=== PATIENT | male | born 1955 | race Caucasian/White ===

== ENCOUNTER 2016-06-12 20:24 | Inpatient (IN) | payer SELFPAY ==
[~2016-06-12] VITALS: Ht 175.3 cm; Wt 67.0 kg
[~2016-06-12 20:24] MED LIST: ASPI325T PO; LISI-515 PO
[2016-06-12 20:26] VITALS: BP 154/83; PULSE 87; RESP 15; TEMP 98.8; O2SAT 98
[2016-06-12] MEDS ORDERED: ASPI1TAB69 PO (20:36)
[2016-06-12 20:50] VITALS: RESP 14; O2SAT 96
[2016-06-12] MEDS ORDERED: SODIUM CHLOR 0.9% 1000 ML INJ 1,000 ML IV SCH (20:51)
--- NOTE | 2016-06-12 21:02 | PD ---
HPI Chief Complaint: GI Complaint Time Seen by Provider: 20:58 Travel History International Travel<30 days: No Contact w/Intl Traveler<30days: No Traveled to known affect area: No History of Present Illness HPI 60-year-old male that presents to the ED for evaluation of rectal bleeding. Per patient she's had 5 episodes of rectal bleeding today. Per patient she's had chronic lower abdominal pain for "a while ". When asked the patient states that possibly for months now. Per patient she's had no issues with bowel movements until today when he had 5 bowel movements of blood. Per patient he was significant. Patient states that the only blood thinner he takes is aspirin. She states that he did had colonoscopy possibly 4 years ago and he was negative. He does tell me that he is a heavy smoker. Per patient he has abdominal cramping when he has to have a bowel movement. Per patient the pain in his abdomen comes and goes. He also tells me that he has problems with his urine going but once he gets going is fine. Per patient he has not urinary symptoms or tenderness. He states that this been going on for almost a year and a half. Denies any allergies to medication. States that the pain in the abdomen is crampy in nature and is 4 out of 10. Patient more concerned about the bleeding. Nobody is sick in the house. No fevers chills or sweats. PFSH Past Medical History Hx Anticoagulant Therapy: Yes (asa 325mg) Blood Disorders: No Heart Rhythm Problems: No Cancer: No Cardiovascular Problems: Yes (htn takes no meds states no PCP) High Cholesterol: Yes Chest Pain: No Congestive Heart Failure: No Cerebrovascular Accident: Yes (tia's) Endocrine: No Genitourinary: No Hypertension: Yes Immune Disorder: No Musculoskeletal: Yes (DISLOCATED LEFT ELBOW 40 YEARS AGO) Neurologic: No Psychiatric: No Reproductive: No Respiratory: Yes (copd) Past Surgical History Surgical History: No Previous Surgery Other Surgery: No Social History Alcohol Use: Yes (6-12 BEERS DAILY) Tobacco Use: Yes (2 PPD X 41 YRS) Substance Use: Yes (MARIJUANA ONCE EVERY SO OFTEN) Allergies-Medications (Allergen,Severity, Reaction): Coded Allergies: No Known Allergies (Verified , 06/12/16) Reported Meds & Prescriptions Reported Meds & Active Scripts Active Lisinopril 20 Mg Tab 20 Mg PO DAILY 14 Days Reported Aspirin 81 Mg Tabdr 81 Mg PO DAILY Review of Systems Except as stated in HPI: all other systems reviewed are Neg Physical Exam Narrative GENERAL: SKIN: Warm and dry. HEAD: Atraumatic. Normocephalic. EYES: Pupils equal and round. No scleral icterus. No injection or drainage. ENT: No nasal bleeding or discharge. Mucous membranes pink and moist. Tongue is midline. No uvula deviation. NECK: Trachea midline. No JVD. CARDIOVASCULAR: Regular rate and rhythm. No murmurs, S3, S4. RESPIRATORY: No accessory muscle use. Clear to auscultation. Breath sounds equal bilaterally. GASTROINTESTINAL: Abdomen soft, non-tender, nondistended. Hepatic and splenic margins not palpable. Rectal exam: No sign of hemorrhoid or mass noted. Patient does have lawrence blood noted in my finger. Hemoccult was done and positive. MUSCULOSKELETAL: Extremities without clubbing, cyanosis, or edema. No obvious deformities. Full range of motion of the upper and lower extremities bilaterally. 2+ pulses bilaterally. NEUROLOGICAL: Awake and alert. No obvious cranial nerve deficits. Motor grossly within normal limits. Five out of 5 muscle strength in the arms and legs. Normal speech. PSYCHIATRIC: Appropriate mood and affect; insight and judgment normal. Data Data Last Documented VS Vital Signs Date Time Temp Pulse Resp B/P Pulse Ox O2 Delivery O2 Flow Rate FiO2 06/12/16 20:50 14 96 Room Air 06/12/16 20:26 98.8 87 154/83 Orders Electrocardiogram (06/12/16 20:41) Complete Blood Count With Diff (06/12/16 20:41) Comprehensive Metabolic Panel (06/12/16 20:41) Prothrombin Time / Inr (Pt) (06/12/16 20:41) Act Partial Throm Time (Ptt) (06/12/16 20:41) Lipase (06/12/16 20:41) Urinalysis - C+S If Indicated (06/12/16 20:41) Ct Abd/Pel W Iv Contrast(Rout) (06/12/16 20:41) Iv Access Insert/Monitor (06/12/16 20:41) Ecg Monitoring (06/12/16 20:41) Oximetry (06/12/16 20:41) Type And Screen (06/12/16 20:41) Sodium Chlor 0.9% 1000 Ml Inj (Ns 1000 M (06/12/16 20:51) C Diff Toxin Pcr (06/12/16 21:29) Iohexol 350 Inj (Omnipaque 350 Inj) (06/12/16 21:57) Ciprofloxacin 400 Mg Premix (Cipro 400 M (06/12/16 22:15) Metronidazole 500 Mg Inj (Flagyl 500 Mg (06/12/16 22:15) Admit Order (Ed Use Only) (06/12/16 22:18) Labs Laboratory Tests Test 06/12/16 20:47 White Blood Count 11.4 TH/MM3 Red Blood Count 4.31 MIL/MM3 Hemoglobin 13.5 GM/DL Hematocrit 38.9 % Mean Corpuscular Volume 90.3 FL Mean Corpuscular Hemoglobin 31.3 PG Mean Corpuscular Hemoglobin 34.7 % Concent Red Cell Distribution Width 12.6 % Platelet Count 220 TH/MM3 Mean Platelet Volume 10.6 FL Neutrophils (%) (Auto) 68.7 % Lymphocytes (%) (Auto) 19.1 % Monocytes (%) (Auto) 8.3 % Eosinophils (%) (Auto) 2.7 % Basophils (%) (Auto) 1.2 % Neutrophils # (Auto) 7.9 TH/MM3 Lymphocytes # (Auto) 2.2 TH/MM3 Monocytes # (Auto) 0.9 TH/MM3 Eosinophils # (Auto) 0.3 TH/MM3 Basophils # (Auto) 0.1 TH/MM3 CBC Comment DIFF FINAL Differential Comment Prothrombin Time 11.0 SEC Prothromb Time International 1.0 RATIO Ratio Activated Partial 31.0 SEC Thromboplast Time Sodium Level 134 MEQ/L Potassium Level 3.3 MEQ/L Chloride Level 97 MEQ/L Carbon Dioxide Level 25.6 MEQ/L Anion Gap 11 MEQ/L Blood Urea Nitrogen 14 MG/DL Creatinine 0.94 MG/DL Estimat Glomerular Filtration 82 ML/MIN Rate Random Glucose 80 MG/DL Calcium Level 8.3 MG/DL Total Bilirubin 0.3 MG/DL Aspartate Amino Transf 52 U/L (AST/SGOT) Alanine Aminotransferase 66 U/L (ALT/SGPT) Alkaline Phosphatase 79 U/L Total Protein 7.4 GM/DL Albumin 3.3 GM/DL Lipase 365 U/L Blood Type A POSITIVE Antibody Screen NEGATIVE Blood Bank Comment MDM Medical Decision Making Medical Screen Exam Complete: Yes Emergency Medical Condition: Yes Medical Record Reviewed: Yes Interpretation(s) CBC & BMP Diagram 06/12/16 20:47 LFTs and lipase within normal limits. UA within normal limits coags within normal limits Last Impressions Abdomen/Pelvis CT 06/12/162040 Signed Impressions: Service Date/Time: Sunday, June 12, 2016 21:54 - CONCLUSION: 1. Mild sigmoid colitis, presumably on the basis of diverticulitis. Once acute symptoms have resolved, colonoscopy suggested if not recently done. 2. Vague mass of the upper pole of the left kidney. Outpatient abdominal MRI with and without contrast recommended. 3. Scattered small nonobstructing stones in both kidneys. Also bilateral patchy cortical thinning/scarring. 4. Aortoiliac atherosclerosis. No aneurysm. 5. Emphysema. Jordin Graff MD Differential Diagnosis Rectal bleeding versus diverticulitis versus cancer versus mass versus bleeding Narrative Course 60-year-old male that presents to the ED for evaluation of rectal bleeding. Patient was properly examined and was found to have signs and symptoms consistent rectal bleeding. Unclear etiology at this time. Medications for labs and imaging. Patient is in agreement with this plan. Labs and imaging showed what appears to be diverticulitis with bleed. Case discussed with my attending Dr. Ceballos who evaluated the patient with me and agrees with plan. Patient was admitted to the hospital. Patient was started on IV antibiotics and Protonix. Case was discussed with Dr. Armando who agrees to admission. Procedures EKG Prior to Arrival: No HemaPrompt Point of Care Internal Pos. & Neg. Controls: Passed Fecal Specimen Occult Blood: Positive Diagnosis Primary Impression: Diverticulitis Qualified Code: K57.33 - Diverticulitis of large intestine with bleeding, unspecified complication status Additional Impression: Alcohol abuse Admitting Information Admitting Physician Requests: Admit Lamonte Celis June 12, 2016 21:02
[2016-06-12 21:08] LABS: AUTOMATED NEUTROPHIL # 7.9 TH/MM3 (1.8-7.7); BASOPHIL # 0.1 TH/MM3 (0-0.2); BASOPHIL % 1.2 % (0.0-2.0); EOSINOPHIL # 0.3 TH/MM3 (0-0.4); EOSINOPHIL % 2.7 % (0.0-4.0); HEMATOCRIT 38.9 % (39.0-51.0); HEMO FLAGS DIFF FINAL; LYMPH % 19.1 % (9.0-44.0); LYMPHOCYTE # 2.2 TH/MM3 (1.0-4.8); MEAN CELL VOLUME 90.3 FL (80.0-100.0); MEAN CORPUSCULAR HEMOGLOBIN 31.3 PG (27.0-34.0); MEAN CORPUSCULAR HGB CONC 34.7 % (32.0-36.0); MONO % 8.3 % (0.0-8.0); NEUT % 68.7 % (16.0-70.0); PLATELET COUNT 220 TH/MM3 (150-450); RED BLOOD COUNT 4.31 MIL/MM3 (4.50-5.90); RED CELL DISTRIBUTION WIDTH 12.6 % (11.6-17.2); WHITE BLOOD COUNT 11.4 TH/MM3 (4.0-11.0)
[2016-06-12 21:30] LABS: ANION GAP 11 MEQ/L (5-15); AST (GOT) 52 U/L (15-37); BICARBONATE 25.6 MEQ/L (21.0-32.0); BLOOD UREA NITROGEN 14 MG/DL (7-18); CHLORIDE 97 MEQ/L (98-107); GLOMERULAR FILTRATION RATE 82 ML/MIN (>89); POTASSIUM 3.3 MEQ/L (3.5-5.1); SODIUM (NA) 134 MEQ/L (136-145)
[2016-06-12 21:33] LABS: ALKALINE PHOSPHATASE 79 U/L (45-117); ALT (GPT) 66 U/L (12-78); TOTAL BILIRUBIN ADULT 0.3 MG/DL (0.2-1.0)
[2016-06-12] MEDS ORDERED: IOHEXOL 350 MG/ML 10 ML VIAL (for RAD DIAG) IV ONE (21:57)
--- NOTE | 2016-06-12 22:10 | RADRPT ---
EXAM DATE/TIME: 06/12/2016 21:54 [facility] COMPARISON: No previous studies available for comparison. INDICATIONS : Blood in stool starting today. IV CONTRAST: 70 cc Omnipaque 350 (iohexol) IV ORAL CONTRAST: No oral contrast ingested. RADIATION DOSE: 4.65 CTDIvol (mGy) MEDICAL HISTORY : Hypertension. Cerebrovascular disease. Chronic obstructive pulmonary disease. SURGICAL HISTORY : None. ENCOUNTER: Initial ACUITY: 1 day PAIN SCALE: 0/10 LOCATION: abdomen TECHNIQUE: Volumetric scanning of the abdomen and pelvis was performed. Using automated exposure control and ad justment of the mA and/or kV according to patient size, radiation dose was kept as low as reasonably achievable to obtain optimal diagnostic quality images. FINDINGS: LOWER LUNGS: Mild emphysema seen of both lung bases. LIVER: Homogeneous density without lesion. There is no dilation of the biliary tree. No calcified gallston es. SPLEEN: Normal size without lesion. PANCREAS: Within normal limits. KIDNEYS: Ill-defined mass seen medially at the left upper pole, 2.4 x 2.6 x 2.5 cm in size. The several small, nonobstructing stones are seen of both kidneys. There are scattered foci of cortical thinning/scarri ng, right more so than left. ADRENAL GLANDS: Within normal limits. VASCULAR: There is aortoiliac atherosclerosis with mural thrombus. No aneurysm. BOWEL/MESENTERY: Severe diverticulosis and mild wall thickening/minimal pericolonic stranding seen in the sigmoid colo n. ABDOMINAL WALL: Within normal limits. RETROPERITONEUM: There is no lymphadenopathy. BLADDER: No wall thickening or mass. REPRODUCTIVE: Prostate is enlarged. INGUINAL: There is no lymphadenopathy or hernia. MUSCULOSKELETAL: No acute bony abnormality demonstrated. Moderate bilateral hip osteoarthritis. CONCLUSION: 1. Mild sigmoid colitis, presumably on the basis of diverticulitis. Once acute symptoms have resolved , colonoscopy suggested if not recently done. 2. Vague mass of the upper pole of the left kidney. Outpatient abdominal MRI with and without contras t recommended. 3. Scattered small nonobstructing stones in both kidneys. Also bilateral patchy cortical thinning/sca rring. 4. Aortoiliac atherosclerosis. No aneurysm. 5. Emphysema. Jordin Graff MD on June 12, 2016 at 22:02 Board Certified Radiologist. This report was verified electronically.
[2016-06-12] MEDS ORDERED: CIPROFLOXACIN 400 MG PREMIX 200 ML IV ONE (22:15)
[2016-06-12] MEDS ORDERED: metroNIDAZOLE 500 MG INJ 100 ML IV ONE (22:15)
--- NOTE | 2016-06-12 22:22 | PD ---
Data Data Last Documented VS Vital Signs Date Time Temp Pulse Resp B/P Pulse Ox O2 Delivery O2 Flow Rate FiO2 06/12/16 20:50 14 96 Room Air 06/12/16 20:26 98.8 87 154/83 Orders Electrocardiogram (06/12/16 20:41) Complete Blood Count With Diff (06/12/16 20:41) Comprehensive Metabolic Panel (06/12/16 20:41) Prothrombin Time / Inr (Pt) (06/12/16 20:41) Act Partial Throm Time (Ptt) (06/12/16 20:41) Lipase (06/12/16 20:41) Urinalysis - C+S If Indicated (06/12/16 20:41) Ct Abd/Pel W Iv Contrast(Rout) (06/12/16 20:41) Iv Access Insert/Monitor (06/12/16 20:41) Ecg Monitoring (06/12/16 20:41) Oximetry (06/12/16 20:41) Type And Screen (06/12/16 20:41) Sodium Chlor 0.9% 1000 Ml Inj (Ns 1000 M (06/12/16 20:51) C Diff Toxin Pcr (06/12/16 21:29) Iohexol 350 Inj (Omnipaque 350 Inj) (06/12/16 21:57) Ciprofloxacin 400 Mg Premix (Cipro 400 M (06/12/16 22:15) Metronidazole 500 Mg Inj (Flagyl 500 Mg (06/12/16 22:15) Admit Order (Ed Use Only) (06/12/16 22:18) Alcohol Withdrawal Asmt-Ciwa ONCE (06/12/16 22:19) Ondansetron Inj (Zofran Inj) (06/12/16 22:30) Flumazenil Inj (Romazicon Inj) (06/12/16 22:30) Lorazepam (Ativan) (06/12/16 22:30) Lorazepam Inj (Ativan Inj) (06/12/16 22:30) Lorazepam (Ativan) (06/12/16 22:30) Lorazepam Inj (Ativan Inj) (06/12/16 22:30) Lorazepam Inj (Ativan Inj) (06/12/16 22:30) Lorazepam Inj (Ativan Inj) (06/12/16 22:30) Labs Laboratory Tests Test 06/12/16 20:47 White Blood Count 11.4 TH/MM3 Red Blood Count 4.31 MIL/MM3 Hemoglobin 13.5 GM/DL Hematocrit 38.9 % Mean Corpuscular Volume 90.3 FL Mean Corpuscular Hemoglobin 31.3 PG Mean Corpuscular Hemoglobin 34.7 % Concent Red Cell Distribution Width 12.6 % Platelet Count 220 TH/MM3 Mean Platelet Volume 10.6 FL Neutrophils (%) (Auto) 68.7 % Lymphocytes (%) (Auto) 19.1 % Monocytes (%) (Auto) 8.3 % Eosinophils (%) (Auto) 2.7 % Basophils (%) (Auto) 1.2 % Neutrophils # (Auto) 7.9 TH/MM3 Lymphocytes # (Auto) 2.2 TH/MM3 Monocytes # (Auto) 0.9 TH/MM3 Eosinophils # (Auto) 0.3 TH/MM3 Basophils # (Auto) 0.1 TH/MM3 CBC Comment DIFF FINAL Differential Comment Prothrombin Time 11.0 SEC Prothromb Time International 1.0 RATIO Ratio Activated Partial 31.0 SEC Thromboplast Time Sodium Level 134 MEQ/L Potassium Level 3.3 MEQ/L Chloride Level 97 MEQ/L Carbon Dioxide Level 25.6 MEQ/L Anion Gap 11 MEQ/L Blood Urea Nitrogen 14 MG/DL Creatinine 0.94 MG/DL Estimat Glomerular Filtration 82 ML/MIN Rate Random Glucose 80 MG/DL Calcium Level 8.3 MG/DL Total Bilirubin 0.3 MG/DL Aspartate Amino Transf 52 U/L (AST/SGOT) Alanine Aminotransferase 66 U/L (ALT/SGPT) Alkaline Phosphatase 79 U/L Total Protein 7.4 GM/DL Albumin 3.3 GM/DL Lipase 365 U/L Blood Type A POSITIVE Antibody Screen NEGATIVE Blood Bank Comment [facility] Supervised Visit with SHERRY: Yes Narrative Course The history, exam, and medical decision-making in the associated midlevel provider note were completed with my assistance. I reviewed and agree with the findings presented. I attest that I had a [id number] encounter with the patient on the same day, and personally performed and documented my assessment and findings in the medical record. *My assessment and Findings: This is a 60-year-old male who presents to the emergency department with 1 day of rectal bleeding and loose stools associated with lower abdominal pain. His lower abdominal pain appears to be subacute. He appears chronically unwell-appearing. He admits to daily alcohol use. He was placed on a monitor and an IV was established. Labs are unremarkable. CT demonstrates sigmoid colitis with severe diverticulosis. Patient will be placed on ciprofloxacin and Flagyl and will be admitted for GI evaluation and close monitoring. He was placed on a CIWA protocol Rosa Ceballos MD June 12, 2016 22:22
[2016-06-12] MEDS ORDERED: PANTOPRAZOLE INJ 80 MG in SODIUM CHLORIDE 0.9% INJ 100 ML IV SCH (22:30)
[2016-06-12] MEDS ORDERED: LORazepam 2 MG TAB PO PRN (22:30)
[2016-06-12] MEDS ORDERED: LORazepam 1 MG TAB PO PRN (22:30)
[2016-06-12] MEDS ORDERED: FLUMAZENIL 0.5 MG/5 ML VIAL IV PUSH PRN (22:30)
[2016-06-12] MEDS ORDERED: LORazepam 2 MG/ML VIAL IV PUSH PRN ×4 (22:30)
[2016-06-12] MEDS ORDERED: ONDANSETRON HCL 4 MG/2 ML VIAL IV PUSH PRN (22:30)
[2016-06-12] MEDS ORDERED: MORPHINE SULFATE 4 MG/ML INJ IV PRN (23:00)
[2016-06-12] MEDS ORDERED: BISACODYL 10 MG SUPP RECTAL PRN (23:00)
[2016-06-12] MEDS ORDERED: ACETAMINOPHEN 325 MG TAB PO PRN (23:00)
[2016-06-12] MEDS ORDERED: SODIUM CHLORIDE 0.9% FLUSH 10 ML FLUSH IV FLUSH PRN (23:00)
[2016-06-12] MEDS ORDERED: ONDANSETRON HCL 4 MG/2 ML VIAL IVP PRN (23:00)
--- NOTE | 2016-06-12 23:09 | HHI.HP ---
HPI [facility] No Primary Care Physician Admission Diagnosis Diverticulitis with bleed, alcohol withdrawal Diagnoses: (1) Diverticulitis Diagnosis: Principal (2) Rectal bleeding Diagnosis: Principal (3) Alcohol abuse Diagnosis: Principal (4) Dehydration Diagnosis: Principal (5) Hypokalemia Diagnosis: Principal (6) HTN (hypertension) Diagnosis: Principal (7) Renal mass Diagnosis: Principal (8) Tobacco abuse Diagnosis: Principal Travel History International Travel<30 Days: No Contact w/Intl Traveler <30 Da: No Traveled to Known Affected Are: No History of Present Illness This 60-year-old male with a PMH of Alcohol Abuse, Tobacco Abuse, COPD and HTN who presented to the ER with complaints of rectal bleeding starting earlier today. Per patient he has had complaints of abdominal pain for several weeks, today with acute onset of rectal bleeding with bowel movement on 5 occasions. Denies nausea, vomiting or diarrhea. On arrival, BP 154/83, HR 87, O2 sat 98% on RA, Afebrile. WBC 11.4. K+ 3.3. GFR 82, previously 124 on 12/24/15. CT Abd/Pelvis w/ mild sigmoid colitis, presumably diverticulitis, colonoscopy suggested, vague mass upper pole of left kidney, emphysema. S/p Cipro/Flagyl in ER. Pt also reports decreased alcohol intake today in light of symptoms, now tremulous. S/p Ativan in ER. Review of Systems Except as stated in HPI: all other systems reviewed are Neg ROS: 14 point review of systems otherwise negative. Past Family Social History Past Medical History PMH: Alcohol Abuse, Tobacco Abuse, COPD and HTN Past Surgical History PAST SURGICAL HISTORY: None Allergies: Coded Allergies: No Known Allergies (Verified , 06/12/16) Family History PAST FAMILY HISTORY: Reviewed. No h/o DM or CAD Social History PAST SOCIAL HISTORY: Drinks 6-12 beers a day. Smokes 2ppd. Positive for Marijuana. Physical Exam Vital Signs Vital Signs Date Time Temp Pulse Resp B/P Pulse Ox O2 Delivery O2 Flow Rate FiO2 06/12/16 20:50 14 96 Room Air 06/12/16 20:26 98.8 87 15 154/83 98 Room Air Physical Exam PE: GENERAL: Middle-aged male in no acute distress. HEENT: PERRLA, EOMI. No scleral icterus or conjunctival pallor. No lid lag or facial droop. CARDIOVASCULAR: Regular rate and rhythm. No obvious murmurs to auscultation. No chest tenderness to palpation. RESPIRATORY: No obvious rhonchi or wheezing. Clear to auscultation. Breath sounds equal bilaterally. GASTROINTESTINAL: Abdomen soft, non-tender, nondistended. BS normal. MUSCULOSKELETAL: Extremities without clubbing, cyanosis, or edema. No obvious deformities. NEUROLOGICAL: Awake, alert and oriented x4. No focal neurologic deficits. Moving both upper and lower extremities spontaneously. Laboratory Laboratory Tests Test 06/12/16 20:47 White Blood Count 11.4 Red Blood Count 4.31 Hemoglobin 13.5 Hematocrit 38.9 Mean Corpuscular Volume 90.3 Mean Corpuscular Hemoglobin 31.3 Mean Corpuscular Hemoglobin 34.7 Concent Red Cell Distribution Width 12.6 Platelet Count 220 Mean Platelet Volume 10.6 Neutrophils (%) (Auto) 68.7 Lymphocytes (%) (Auto) 19.1 Monocytes (%) (Auto) 8.3 Eosinophils (%) (Auto) 2.7 Basophils (%) (Auto) 1.2 Neutrophils # (Auto) 7.9 Lymphocytes # (Auto) 2.2 Monocytes # (Auto) 0.9 Eosinophils # (Auto) 0.3 Basophils # (Auto) 0.1 CBC Comment DIFF FINAL Differential Comment Prothrombin Time 11.0 Prothromb Time International 1.0 Ratio Activated Partial 31.0 Thromboplast Time Sodium Level 134 Potassium Level 3.3 Chloride Level 97 Carbon Dioxide Level 25.6 Anion Gap 11 Blood Urea Nitrogen 14 Creatinine 0.94 Estimat Glomerular Filtration 82 Rate Random Glucose 80 Calcium Level 8.3 Total Bilirubin 0.3 Aspartate Amino Transf 52 (AST/SGOT) Alanine Aminotransferase 66 (ALT/SGPT) Alkaline Phosphatase 79 Total Protein 7.4 Albumin 3.3 Lipase 365 Blood Type A POSITIVE Antibody Screen NEGATIVE Blood Bank Comment Result Diagram: 06/12/16204606/12/162046 Assessment and Plan Problem List: (1) Diverticulitis ICD Code: K57.92 Status: Acute (2) Rectal bleeding ICD Code: K62.5 Status: Acute (3) Alcohol abuse ICD Code: F10.10 Status: Chronic (4) Dehydration ICD Code: E86.0 Status: Acute (5) Hypokalemia ICD Code: E87.6 Status: Acute (6) HTN (hypertension) ICD Code: I10 Status: Chronic (7) Renal mass ICD Code: N28.89 Status: Acute (8) Tobacco abuse ICD Code: Z72.0 Status: Chronic Assessment and Plan A/P: 1. Diverticulitis: c/o ongoing abdominal pain for several weeks, CT Abd/ Pelvis w/ mild sigmoid colitis, presumably diverticulitis, images reviewed by me. S/p Cipro/Flagyl in ER, will continue w/ IV Abx, Consult GI for further eval and possible Colonoscopy in light of rectal bleed. 2. Rectal Bleeding: acute onset of rectal bleeding today x5, +Hemoccult on exam. Hgb 13.5. hemodynamically stable. Will monitor Hgb/Hct. Consult GI for further eval as above. Hold home ASA. 3. Hypokalemia: K+ 3.3. Will repeat labs in am, replace as needed. 4. Dehydration: GFR 82, previously 124 on 12/24/15, IVF for hydration, repeat labs in am. 5. HTN: BP 140's, hold home Lisinopril for now in light of dehydration w/ decreased GFR. Monitor BP 6. Renal Mass: CT Abd/Pelvis w/ vague mass of upper pole of left kidney, recommendation for outpatient MRI w/ and w/o contrast. 7. Alcohol Abuse: w/ Acute Alcohol Withdrawal. Drinks 6-12 beers/day, decreased intake in light of symptoms today, now tremulous. CIWA, Seizure Precautions, MVT/Thiamine/Folate replacement. 8. Tobacco Abuse: Pt counselled. Ativan/NicoDerm prn if needed. 9. DVT Prophylaxis: Pharmacologic contraindication in light of rectal bleed. 10. Social work for dc planning as needed. 11. Case discussed w/ ER physician at length. Physician Certification 2 Midnight Certification Type: Admission for Inpatient Services Order for Inpatient Services The services are ordered in accordance with Medicare regulations or non- Medicare payer requirements, as applicable. In the case of services not specified as inpatient-only, they are appropriately provided as inpatient services in accordance with the 2-midnight benchmark. Estimated LOS (days): 2 days is the estimated time the patient will need to remain in the hospital, assuming treatment plan goals are met and no additional complications. Post-Hospital Plan: Not yet determined Problem Qualifiers (1) Diverticulitis: Qualified Code: K57.33 - Diverticulitis of large intestine with bleeding, unspecified complication status Isabela Armando MD June 12, 2016 23:09
[2016-06-13] VITALS: BP 155/70; PULSE 77; RESP 16; O2SAT 96
[2016-06-13] MEDS: MULTIVITAMIN INJ 10 ML, FOLIC ACID INJ 1 MG in SODIUM CHLORID 0.9% 500 ML INJ 500 ML IV SCH ×2 (00:42→22:37)
[2016-06-13] MEDS: THIAMINE INJ 100 MG in SODIUM CHLORIDE 0.9% INJ 100 ML IV SCH (00:42)
[2016-06-13 04:00] VITALS: BP 142/67; PULSE 81; RESP 20; TEMP 97.6
[2016-06-13] MEDS ORDERED: metroNIDAZOLE 500 MG INJ 100 ML IV SCH (06:00)
[2016-06-13 07:44] VITALS: BP 126/60; PULSE 73; RESP 18; TEMP 97.8; O2SAT 98
[2016-06-13] MEDS: LISINOPRIL 20 MG TAB PO SCH (08:38)
[2016-06-13] MEDS: SODIUM CHLORIDE 0.9% FLUSH 10 ML FLUSH IV FLUSH SCH ×2 (08:38→22:41)
[2016-06-13] MEDS: ASPIRIN EC 81 MG TABEC PO SCH (08:38)
[2016-06-13 09:08] LABS: AUTOMATED NEUTROPHIL # 7.4 TH/MM3 (1.8-7.7); BASOPHIL # 0.1 TH/MM3 (0-0.2); BASOPHIL % 0.6 % (0.0-2.0); EOSINOPHIL # 0.2 TH/MM3 (0-0.4); EOSINOPHIL % 1.5 % (0.0-4.0); HEMATOCRIT 32.8 % (39.0-51.0); HEMO FLAGS DIFF FINAL; LYMPH % 22.6 % (9.0-44.0); LYMPHOCYTE # 2.6 TH/MM3 (1.0-4.8); MEAN CORPUSCULAR HEMOGLOBIN 30.5 PG (27.0-34.0); MEAN CORPUSCULAR HGB CONC 33.5 % (32.0-36.0); MONO % 9.6 % (0.0-8.0); NEUT % 65.7 % (16.0-70.0); PLATELET COUNT 196 TH/MM3 (150-450); WHITE BLOOD COUNT 11.3 TH/MM3 (4.0-11.0)
[2016-06-13] MEDS ORDERED: PANTOPRAZOLE INJ 80 MG in SODIUM CHLORIDE 0.9% INJ 100 ML IV SCH (09:30)
--- NOTE | 2016-06-13 10:05 | EKG ---
Date Performed: 06/12/2016 Time Performed: 20:56:15 PTAGE: 60 years EKG: Sinus rhythm RIGHT BUNDLE BRANCH BLOCK ABNORMAL ECG PREVIOUS TRACING : 04/07/2015 13.17 DOCTOR: Arturo Dean Interpretating Date/Time 06/15/2016 09:08:50
[2016-06-13 10:06] LABS: ALKALINE PHOSPHATASE 66 U/L (45-117); ALT (GPT) 49 U/L (12-78); ANION GAP 7 MEQ/L (5-15); AST (GOT) 36 U/L (15-37); BICARBONATE 25.1 MEQ/L (21.0-32.0); BLOOD UREA NITROGEN 12 MG/DL (7-18); CHLORIDE 105 MEQ/L (98-107); GLOMERULAR FILTRATION RATE 108 ML/MIN (>89); POTASSIUM 3.2 MEQ/L (3.5-5.1); SODIUM (NA) 137 MEQ/L (136-145); TOTAL BILIRUBIN ADULT 0.4 MG/DL (0.2-1.0)
[2016-06-13] MEDS: PIPERACIL-TAZO 4.5 GM PREMIX 100 ML IV SCH ×2 (10:59→17:31)
[2016-06-13] MEDS ORDERED: MORPHINE SULFATE 4 MG/ML INJ IV PUSH PRN (11:00)
--- NOTE | 2016-06-13 11:01 | HHI.PR ---
Subjective Remarks Follow-up for diverticulitis. Patient is currently doing well. He reports some lower abdominal pain. Denies any fever or chills. No further rectal bleeding. Tolerated diet well. Objective Vitals Vital Signs Date Time Temp Pulse Resp B/P Pulse Ox O2 Delivery O2 Flow Rate FiO2 06/13/16 07:44 97.8 73 18 126/60 98 06/13/16 04:00 97.6 81 20 142/67 06/13/16 00:00 77 16 155/70 96 Room Air 06/12/16 20:50 14 96 Room Air 06/12/16 20:26 98.8 87 15 154/83 98 Room Air Result Diagram: 06/13/16 0836 06/13/16 0836 Imaging Last Impressions Abdomen/Pelvis CT 06/12/162040 Signed Impressions: Service Date/Time: Sunday, June 12, 2016 21:54 - CONCLUSION: 1. Mild sigmoid colitis, presumably on the basis of diverticulitis. Once acute symptoms have resolved, colonoscopy suggested if not recently done. 2. Vague mass of the upper pole of the left kidney. Outpatient abdominal MRI with and without contrast recommended. 3. Scattered small nonobstructing stones in both kidneys. Also bilateral patchy cortical thinning/scarring. 4. Aortoiliac atherosclerosis. No aneurysm. 5. Emphysema. Jordin Graff MD Objective Remarks GENERAL: Alert, oriented 3, NAD. SKIN: Warm and dry. HEAD: Normocephalic. EYES: No scleral icterus. No injection or drainage. NECK: Supple, trachea midline. No JVD or lymphadenopathy. CARDIOVASCULAR: Regular rate and rhythm without murmurs, gallops, or rubs. RESPIRATORY: Breath sounds equal bilaterally. No accessory muscle use. GASTROINTESTINAL: Abdomen soft, non-tender except in the lower abdomen which is tender to palpation, nondistended. MUSCULOSKELETAL: No cyanosis, or edema. BACK: Nontender without obvious deformity. No CVA tenderness. Procedures None A/P Problem List: (1) Diverticulitis ICD Code: K57.92 Status: Acute (2) Rectal bleeding ICD Code: K62.5 Status: Acute (3) Alcohol abuse ICD Code: F10.10 Status: Chronic (4) Dehydration ICD Code: E86.0 Status: Acute (5) Hypokalemia ICD Code: E87.6 Status: Acute (6) HTN (hypertension) ICD Code: I10 Status: Chronic (7) Renal mass ICD Code: N28.89 Status: Acute (8) Tobacco abuse ICD Code: Z72.0 Status: Chronic Assessment and Plan Mr. Mcdowell 60-year-old male with a PMH of Alcohol Abuse, Tobacco Abuse, COPD and HTN who presented to the ER with complaints of rectal bleeding on 06/12/2016. He also reported ongoing lower abdominal pain. No nausea, vomiting or diarrhea. CT abd/pelvis showed mild sigmoid colitis, presumably diverticulitis, colonoscopy suggested, vague mass upper pole of left kidney, emphysema. - Acute diverticulitis - Discontinue Flagyl and Cipro. Start Zosyn 4.5 g every 8 hours - Morphine when necessary for pain. - Discontinue IV Protonix. Start Protonix 40 mg by mouth daily. - GI has been consulted. Patient will likely need an outpatient colonoscopy in 4-6 weeks. - Suspected left renal mass - Outpatient MRI with and without contrast. - Hypoglycemia - BMP this morning shows Glucose 36. After patient ate, repeat blood glucose was 150. Will monitor blood glucose. - Alcohol abuse - continue CIWA protocol - Hypertension - continue lisinopril 20 mg Qday. - Remove Telemetry. Full code. SCDs. Problem Qualifiers (1) Diverticulitis: Qualified Code: K57.33 - Diverticulitis of large intestine with bleeding, unspecified complication status Cole Montero DO June 13, 2016 11:01 am
[2016-06-13] MEDS ORDERED: CIPROFLOXACIN 400 MG PREMIX 200 ML IV SCH (12:00)
[2016-06-13 12:12] VITALS: BP 101/67; PULSE 76; RESP 18; TEMP 98; O2SAT 98
[2016-06-13 15:42] VITALS: BP 136/63; PULSE 66; RESP 18; TEMP 98.7; O2SAT 97
[2016-06-13] MEDS: REMOVE OLD PATCH T-DERMAL SCH (15:45)
[2016-06-13] MEDS: NICOTINE 14 MG/24 HR PATCH T-DERMAL SCH (16:19)
[2016-06-13 20:00] VITALS: BP 142/65; PULSE 79; RESP 20; TEMP 96.7; O2SAT 99
[2016-06-14] VITALS: BP 147/68; PULSE 69; RESP 20; TEMP 97.8; O2SAT 97
[2016-06-14] MEDS: THIAMINE INJ 100 MG in SODIUM CHLORIDE 0.9% INJ 100 ML IV SCH (02:45)
[2016-06-14] MEDS: PIPERACIL-TAZO 4.5 GM PREMIX 100 ML IV SCH ×2 (02:45→09:41)
[2016-06-14 04:00] VITALS: BP 143/78; PULSE 69; RESP 20; TEMP 98.7; O2SAT 96
[2016-06-14 08:07] VITALS: BP 135/73; PULSE 71; RESP 18; TEMP 98.2; O2SAT 98
[2016-06-14] MEDS: REMOVE OLD PATCH T-DERMAL SCH (09:00)
[2016-06-14] MEDS: SODIUM CHLORIDE 0.9% FLUSH 10 ML FLUSH IV FLUSH SCH (09:00)
[2016-06-14] MEDS ORDERED: PANTOPRAZOLE SOD 40 MG DELAYED RELEASE TAB PO SCH (09:00)
[2016-06-14] MEDS: LISINOPRIL 20 MG TAB PO SCH (09:37)
[2016-06-14] MEDS: NICOTINE 14 MG/24 HR PATCH T-DERMAL SCH (09:37)
[2016-06-14] MEDS: ASPIRIN EC 81 MG TABEC PO SCH (09:37)
[2016-06-14 12:33] VITALS: BP 172/72; PULSE 65; RESP 18; TEMP 97.4; O2SAT 99
[2016-06-14] MEDS ORDERED: AUGM875T PO (12:49)
[2016-06-14] MEDS ORDERED: LACTCHW3 CHEW (12:50)
--- NOTE | 2016-06-14 12:51 | HHI.PR ---
Subjective Remarks Follow-up for diverticulitis. Patient is doing well. Reports resolution of his abdominal pain. No fever, chills. Objective Vitals Vital Signs Date Time Temp Pulse Resp B/P Pulse Ox O2 Delivery O2 Flow Rate FiO2 06/14/16 12:33 97.4 65 18 172/72 99 06/14/16 08:07 98.2 71 18 135/73 98 06/14/16 04:00 98.7 69 20 143/78 96 06/14/16 00:00 97.8 69 20 147/68 97 06/13/16 20:00 96.7 79 20 142/65 99 06/13/16 15:42 98.7 66 18 136/63 97 I/O 06/13/16 06/13/16 06/13/16 06/14/16 06/14/16 06/14/16 07:00 15:00 23:00 07:00 15:00 23:00 Intake Total 360 ml 240 ml Output Total 600 ml 200 ml Balance -240 ml 40 ml Intake Oral 360 ml 240 ml Output Urine Total 600 ml 200 ml # Voids 2 # Bowel Movements 0 Result Diagram: 06/13/16 0836 06/13/1636 Imaging Last Impressions Abdomen/Pelvis CT 06/12/162040 Signed Impressions: Service Date/Time: Sunday, June 12, 2016 21:54 - CONCLUSION: 1. Mild sigmoid colitis, presumably on the basis of diverticulitis. Once acute symptoms have resolved, colonoscopy suggested if not recently done. 2. Vague mass of the upper pole of the left kidney. Outpatient abdominal MRI with and without contrast recommended. 3. Scattered small nonobstructing stones in both kidneys. Also bilateral patchy cortical thinning/scarring. 4. Aortoiliac atherosclerosis. No aneurysm. 5. Emphysema. Jordin Graff MD Objective Remarks GENERAL: Alert, oriented 3, NAD. SKIN: Warm and dry. HEAD: Normocephalic. EYES: No scleral icterus. No injection or drainage. NECK: Supple, trachea midline. No JVD or lymphadenopathy. CARDIOVASCULAR: Regular rate and rhythm without murmurs, gallops, or rubs. RESPIRATORY: Breath sounds equal bilaterally. No accessory muscle use. GASTROINTESTINAL: Abdomen soft, non-tender, nondistended. MUSCULOSKELETAL: No cyanosis, or edema. BACK: Nontender without obvious deformity. No CVA tenderness. Procedures None A/P Problem List: (1) Diverticulitis ICD Code: K57.92 Status: Acute (2) Rectal bleeding ICD Code: K62.5 Status: Acute (3) Alcohol abuse ICD Code: F10.10 Status: Chronic (4) Dehydration ICD Code: E86.0 Status: Acute (5) Hypokalemia ICD Code: E87.6 Status: Acute (6) HTN (hypertension) ICD Code: I10 Status: Chronic (7) Renal mass ICD Code: N28.89 Status: Acute (8) Tobacco abuse ICD Code: Z72.0 Status: Chronic Assessment and Plan Mr. Mcdowell 60-year-old male with a PMH of Alcohol Abuse, Tobacco Abuse, COPD and HTN who presented to the ER with complaints of rectal bleeding on 06/12/2016. He also reported ongoing lower abdominal pain. No nausea, vomiting or diarrhea. CT abd/pelvis showed mild sigmoid colitis, presumably diverticulitis, colonoscopy suggested, vague mass upper pole of left kidney, emphysema. - Acute diverticulitis - Discontinue Flagyl and Cipro. Start Zosyn 4.5 g every 8 hours - Morphine when necessary for pain. - Discontinue IV Protonix. Continue Protonix 40 mg by mouth daily. - Patient will likely need an outpatient colonoscopy in 4-6 weeks. - Suspected left renal mass - Outpatient MRI with and without contrast. - Hypoglycemia - BMP this morning shows Glucose 36. After patient ate, repeat blood glucose was 150. Will monitor blood glucose. - Alcohol abuse - continue CIWA protocol - Hypertension - continue lisinopril 20 mg Qday. Full code. SCDs. Discharge patient to home Condition on discharge: Improved Regular Diet as tolerated Ad [place] activity Rx written: - Augmentin 875 mg BID X 10 days. However, patient was advised to stop Augmentin when he feels he is completely back to baseline. - Lactobacillus TID # 60. Follow-up with primary care physician within one week, GI within 3 weeks. MRI abdomen w and without contrast in the outpatient setting. Problem Qualifiers (1) Diverticulitis: Qualified Code: K57.33 - Diverticulitis of large intestine with bleeding, unspecified complication status Cole Montero DO June 14, 2016 12:51
[2016-06-16] MEDS ORDERED: THIAMINE HCL 100 MG TAB PO SCH (09:00)
== END 2016-06-14 13:20 | disposition home or self-care (01) | DRG 392 ==
LOC: NEPE 20:24 → NEDA 22:19 → N05B 06-13 01:39
PROVIDERS: ADMIT Hospitalist; ATTEND Hospitalist
DX: K57.32 Diverticulitis of large intestine without perforation or abscess without bleeding (principal); J44.9 Chronic obstructive pulmonary disease, unspecified; K62.5 Hemorrhage of anus and rectum; I10 Essential (primary) hypertension; F10.239 Alcohol dependence with withdrawal, unspecified; Z79.82 Long term (current) use of aspirin; E16.2 Hypoglycemia, unspecified; E86.0 Dehydration; E87.6 Hypokalemia; N28.89 Other specified disorders of kidney and ureter; F17.210 Nicotine dependence, cigarettes, uncomplicated; Z86.73 Personal history of transient ischemic attack (TIA), and cerebral infarction without residual deficits
CPT/HCPCS: 74177; 80053; 82948; 83690; 85025; 85610; 85730; 86850; 86900; 86901; 93005; C9113; J0744; J2543; J3411; J7030; J7040; Q9967